=== PATIENT | female | born 1995 | race Caucasian/White ===

== ENCOUNTER 2016-08-25 06:46 | Emergency (ER) | payer OTHER ==
[~2016-08-25 06:46] MED LIST: ADDERALL PO; AUGMENTIN PO; BACITRACIN-POLY15 GM TOP; FLEXERIL PO; NAPROXEN PO; NO MEDICATIONS; STRATTERA PO
== END 2016-08-25 08:35 | disposition home or self-care (01) ==
LOC: CED 06:46
DX: L02.511 Cutaneous abscess of right hand (principal); F19.10 Other psychoactive substance abuse, uncomplicated; E11.9 Type 2 diabetes mellitus without complications; Z23 Encounter for immunization
CPT/HCPCS: 90471; 90715; 99283